=== PATIENT | male | born 1960 | race Caucasian/White ===

== ENCOUNTER 2017-01-11 23:23 | Emergency (ER) | payer OTHER, BC ==
[~2017-01-11] VITALS: Ht 180.3 cm; Wt 97.5 kg
--- NOTE | 2017-01-11 23:50 | NUR ---
Pt ambulated to room with steady gait. Pt c/o a sore to left lower mouth not improving with ABT. ABT's were started yesterday. Dr. Sanderson at bedside for MSE, awaiting further orders.
[2017-01-11] MEDS ORDERED: CLINDAMYCIN (23:56)
[2017-01-12] MEDS ORDERED: HYDROCODONE/APAP 5-325MG TABLET PO ONE (00:15)
--- NOTE | 2017-01-12 00:25 | NUR ---
Pt medicated for discomfort. Pt stable for discharge per Dr. Sanderson. Pt given ACI. Pt verbalized understanding of dc instructions. Pt ambulated out of er with steady gait and ride home.
[2017-01-12] MEDS ORDERED: HYDROCODONE/APAP 5-325MG TABLET ONE (00:34)
[2017-01-12 01:16] VITALS: BP 142/79
== END 2017-01-12 00:25 | disposition home or self-care (01) ==
LOC: ER 23:26
DX: K08.89 Other specified disorders of teeth and supporting structures (principal)
CPT/HCPCS: 99283; A4663